=== PATIENT | male | born 1955 | race Caucasian/White ===

== ENCOUNTER 2024-01-25 13:58 | Emergency (ER) | payer OTHER ==
[~2024-01-25] VITALS: Ht 188 cm; Wt 104.3 kg
[2024-01-25 14:23] VITALS: BP 146/106
[2024-01-25 16:00] LABS: BASOPHILS ABSOLUTE AUTO 0.05 K/mm3 (0.00-0.23); BASOPHILS PERCENT AUTO 1 % (0-2); EOSINOPHILS ABSOLUTE AUTO 0.06 K/mm3 (0.00-0.68); EOSINOPHILS PERCENT AUTO 1 % (0-6); Hemoglobin 14.7 g/dL (13.5-17.5); IMMATURE GRAN ABSOLUTE AUTO 0.04 K/mm3 (0.00-0.10); IMMATURE GRAN PERCENT AUTO 0 % (0-1); LYMPHOCYTES ABSOLUTE AUTO 1.62 K/mm3 (0.84-5.20); LYMPHOCYTES PERCENT AUTO 15 % (21-46); MONOCYTES ABSOLUTE AUTO 0.65 K/mm3 (0.16-1.47); MONOCYTES PERCENT AUTO 6 % (4-13); Mean Corpuscular HGB 31.6 pg (26.0-34.0); Mean Corpuscular Volume 90 fL (80-100); Mean Platelet Volume 9.2 fL (9.1-12.4); NEUTROPHILS ABSOLUTE AUTO 8.19 K/mm3 (1.96-9.15); NEUTROPHILS PERCENT AUTO 77 % (41-73); Platelet Count 269 K/mm3 (150-400); RDW Coefficient Variation 13.3 % (11.7-14.2); RDW Standard Deviation 44.2 fL (35.1-46.3); Red Blood Cell Count 4.65 M/mm3 (4.30-5.90); White Blood Cell Count 10.61 K/mm3 (4.00-11.30)
[2024-01-25 16:12] LABS: International Normalized Ratio 1.14; Prothrombin Time Results 12.1 Sec (9.7-11.5)
[2024-01-25 16:21] LABS: Albumin, Blood 3.6 g/dL (3.4-5.0); Albumin/Globulin Ratio 1.1 (0.8-1.8); Bilirubin, Total 0.3 mg/dL (0.1-1.0); Bun/Creatinine Ratio 20.9 (12.0-20.0); Calcium, Blood 8.7 mg/dL (8.5-10.1); Creatinine, Blood 0.96 mg/dL (0.60-1.20); Globulin, Blood 3.4 g/dL (2.2-4.0); Potassium, Blood 4.3 mmol/L (3.5-5.5)
[2024-01-25] MEDS ORDERED: CLOP75 PO (17:42)
[2024-01-25] MEDS ORDERED: Clopidogrel Bisulfate 75 MG Tab PO ONE (17:45)
== END 2024-01-25 18:05 | disposition home or self-care (01) ==
LOC: ER 13:58
PROVIDERS: Physician Assistant
DX: I77.1 Stricture of artery (principal)
CPT/HCPCS: 75635; 80053; 85025; 85610; 93926; 93971; 99284-25; A9270; Q9967

== ENCOUNTER 2024-03-16 10:01 | Emergency (ER) | payer OTHER ==
[~2024-03-16] VITALS: Ht 188 cm; Wt 106.6 kg
[~2024-03-16 10:01] MED LIST: CLOP75 PO
[2024-03-16 11:38] LABS: BASOPHILS ABSOLUTE AUTO 0.03 K/mm3 (0.00-0.23); BASOPHILS PERCENT AUTO 0 % (0-2); EOSINOPHILS ABSOLUTE AUTO 0.09 K/mm3 (0.00-0.68); EOSINOPHILS PERCENT AUTO 1 % (0-6); Hemoglobin 14.6 g/dL (13.5-17.5); IMMATURE GRAN ABSOLUTE AUTO 0.04 K/mm3 (0.00-0.10); IMMATURE GRAN PERCENT AUTO 1 % (0-1); LYMPHOCYTES ABSOLUTE AUTO 1.63 K/mm3 (0.84-5.20); LYMPHOCYTES PERCENT AUTO 21 % (21-46); MONOCYTES ABSOLUTE AUTO 0.65 K/mm3 (0.16-1.47); MONOCYTES PERCENT AUTO 8 % (4-13); Mean Corpuscular HGB 31.4 pg (26.0-34.0); Mean Corpuscular HGB Conc 34.8 g/dL (31.5-36.5); Mean Corpuscular Volume 90 fL (80-100); Mean Platelet Volume 8.8 fL (9.1-12.4); NEUTROPHILS ABSOLUTE AUTO 5.32 K/mm3 (1.96-9.15); NEUTROPHILS PERCENT AUTO 69 % (41-73); Platelet Count 323 K/mm3 (150-400); RDW Coefficient Variation 13.2 % (11.7-14.2); RDW Standard Deviation 43.4 fL (35.1-46.3); Red Blood Cell Count 4.65 M/mm3 (4.30-5.90); White Blood Cell Count 7.76 K/mm3 (4.00-11.30)
[2024-03-16 11:49] LABS: Albumin, Blood 3.7 g/dL (3.4-5.0); Bilirubin, Total 0.5 mg/dL (0.1-1.0); Calcium, Blood 9.3 mg/dL (8.5-10.1); Creatinine, Blood 0.84 mg/dL (0.60-1.20); Globulin, Blood 3.8 g/dL (2.2-4.0); Potassium, Blood 4.4 mmol/L (3.5-5.5); Total Protein, Blood 7.5 g/dL (6.4-8.2)
[2024-03-16 14:45] VITALS: BP 149/105
== END 2024-03-16 14:59 | disposition home or self-care (01) ==
LOC: ER 10:01
PROVIDERS: Student in an Organized Health Care Education/Training Program
DX: G45.9 Transient cerebral ischemic attack, unspecified (principal); I73.9 Peripheral vascular disease, unspecified; F17.200 Nicotine dependence, unspecified, uncomplicated; Z88.8 Allergy status to other drugs, medicaments and biological substances; Z79.01 Long term (current) use of anticoagulants
CPT/HCPCS: 70450; 80053; 85025; 93005; 93010; 99285-25

== ENCOUNTER 2024-04-11 07:25 | Day surgery (SDC) | payer OTHER ==
[2024-04-11] VITALS (10 sets, daily range): BP systolic 119–172; BP diastolic 86–111
[~2024-04-11] VITALS: Ht 188 cm; Wt 113.0 kg
[~2024-04-11 07:25] MED LIST changes: +Crestor40 MG PO; +GABA300 PO; +LOSARTAN POTAS100 M1 PO
[2024-04-11] MEDS ORDERED: NS 100 ML IV ONE (07:50)
[2024-04-11] MEDS ORDERED: NS 250 ML IV ONE (07:50)
[2024-04-11] MEDS ORDERED: Heparin Sodium 1000 Units/ML 10ML MDV ONE ×2 (07:50→08:17)
[2024-04-11] MEDS ORDERED: NS 1,000 ML IV ONE ×2 (07:50→08:17)
[2024-04-11] MEDS ORDERED: Nitroglycerin 2 MG/20 ML BTL ONE (07:51)
[2024-04-11] MEDS ORDERED: CILO100 PO (07:55)
[2024-04-11] MEDS ORDERED: Midazolam HCl 1MG / ML 2ML Vial ONE (08:16)
[2024-04-11] MEDS ORDERED: FentaNYL Citrate 50 MCG/ML 2 ML Injection ONE (08:17)
--- NOTE | 2024-04-11 09:30 | NUR ---
PT BACK TO RECOVERY ROOM. PT ALERT AND ORIENTED. R GROIN IS SOFT AND NON TENDER. PT GIVEN SIPS OF COFFEE PER REQUEST. SPOUSE TO BEDSIDE.
[2024-04-11] MEDS ORDERED: Clopidogrel Bisulfate 75 MG Tab PO ONE (09:45)
[2024-04-11] MEDS ORDERED: Clopidogrel Bisulfate 75 MG Tab ONE (09:51)
--- NOTE | 2024-04-11 09:57 | NUR ---
PT MEDICATED WITH LOADING DOSE OF PLAVIX 225 MG PO, PT TOLERATED WELL. R GROIN SITE SOFT, NON TENDER. NO BLEEDING. DRESSING C/D/I. PT KEEPING HEAD AND LEGS DOWN. SPOUSE AT BEDSIDE.
--- NOTE | 2024-04-11 10:02 | NUR ---
PLAVIX CALLED INTO [facility]
[2024-04-11] MEDS ORDERED: CLOP75 PO (10:04)
--- NOTE | 2024-04-11 11:32 | NUR ---
PT sitting up 30 degrees.
--- NOTE | 2024-04-11 12:25 | NUR ---
PT VERBALIZES UNDERSTANDING WRITTEN AND VERBAL INSTRUCTIONS. DENIES QUESTIONS OR CONCERNS. VSS. NADN. PT DRESSES SELF WITHOUT DIFF. PT R FEMORAL SITE REMAINS C/D/I, SOFT AND NON-TENDER. NO BLEEDING OR HEMATOMA NOTED. PT IV DC'D. CATH INTACT. PRESSURE DSG APPLIED NO BLEEDING NOTED. PT DC TO HOME VIA S/O BY WC.
== END 2024-04-11 11:22 | disposition home or self-care (01) ==
LOC: MHTC 07:25
DX: I70.222 Atherosclerosis of native arteries of extremities with rest pain, left leg (principal); E78.5 Hyperlipidemia, unspecified; I10 Essential (primary) hypertension; F17.210 Nicotine dependence, cigarettes, uncomplicated; Z88.8 Allergy status to other drugs, medicaments and biological substances; Z79.899 Other long term (current) drug therapy
CPT/HCPCS: 37227; 37228; 75625; 75716; 75774; 76937; 99152; 99153; A9270; C1714; C1725; C1760; C1769; C1874; C1887; C1894; J1644; J2250; J3010; J7030; J7050; Q9967